=== PATIENT | male | born 1980 | race American Indian/Alaskan Native ===

== ENCOUNTER 2017-08-10 09:52 | Emergency (ER) | payer OTHER ==
[2017-08-10 09:55] VITALS: BP 128/94
[2017-08-10] MEDS ORDERED: DECADRON IV ONE (10:41)
[2017-08-10] MEDS ORDERED: PEPCID PO ONE (10:41)
[2017-08-10] MEDS ORDERED: DECADRON IM ONE (10:53)
--- NOTE | 2017-08-10 10:57 | Emergency Department Report ---
HPI - General Chief Complaint: Allergic Reaction - HPI HPI: 36-year-old -[place] male comes in for complaint of hives all over his body that started approximately Saturday. Patient reports that today he woke up with swelling to his face. Patient denies any shortness of breathing he denies any wheezing he does report he is taken Benadryl but last dose was last night. He currently has no past medical history he is currently on no other meds and has no known drug allergies. The only thing he can think of is that he had some hot chips that were new other than that he has no recollection of what it could be caused from. ED Past Medical Hx - Past Medical History Previous Medical History?: No - Surgical History Past Surgical History?: No - Social History Smoking Status: Never Smoker Substance Use Type: None - Medications Home Medications: Home Medications Medication Instructions Recorded Confirmed Last Taken Type Cetirizine HCl [ZyrTEC] 10 mg PO QDAY 30 Days #30 capsule 08/10/17 Unknown Rx Famotidine [Pepcid] 20 mg PO QDAY #15 tablet 08/10/17 Unknown Rx methylPREDNISolone [Medrol] 4 mg PO QDAY #1 tab.ds.pk 08/10/17 Unknown Rx ED Review of Systems ROS: Stated complaint: ALLERGIC REACTION Other details as noted in HPI Constitutional: denies: chills, fever Eyes: denies: eye pain, eye discharge, vision change ENT: denies: ear pain, throat pain Respiratory: denies: cough, shortness of breath, wheezing Cardiovascular: denies: chest pain, palpitations Endocrine: no symptoms reported Gastrointestinal: denies: abdominal pain, nausea, diarrhea Genitourinary: denies: urgency, dysuria Musculoskeletal: denies: back pain, joint swelling, arthralgia Skin: rash, pruritus Psychiatric: denies: anxiety, depression Hematological/Lymphatic: denies: easy bleeding, easy bruising Physical Exam - Physical Exam Vital Signs: Vital Signs 08/10/17 09:54 Temperature 98.1 F Pulse Rate 81 Respiratory 18 Rate Blood Pressure 128/94 [Left] O2 Sat by Pulse 100 Oximetry Physical Exam: GENERAL: Alert and oriented x3, no apparent distress, Normal Gait, atraumatic. HEAD: Head is normocephalic and a-traumatic. MOUTH:Mouth is well hydrated and without lesions. Tonsils Nonerythematous or swollen, Uvula midline, Tongue not elevated. Mucous membranes are moist. Posterior pharynx clear, no exudate or lesions. Patent airways. NECK: Supple. Non edematous, No carotid bruits. No lymphadenopathy or thyromegaly. LUNGS: Symetrical with respiration, No wheezing, no rales or crackles, CTAB. Airway is patent no obstruction HEART: S1, S2 present, regular rate and rhythm without murmur, no rubs, no gallops. ABDOMEN: No organomegaly was noted,Positive bowel sounds, soft, and non- distended. . Nontender to palpation on all Quadrants, NO CVA tenderness. Urticaria patches NEUROLOGIC: No focal Deficit, Cranial nerves II through XII are grossly intact. No loss of sensation, No facial droop, Negative rhomberg. PSYCHIATRIC: Mood is congruent with affect, denies suicidal or homicidal ideations. SKIN: Warm and dry, No lesions, No ulceration or induration present ED Course Vital Signs 08/10/17 09:54 Temperature 98.1 F Pulse Rate 81 Respiratory 18 Rate Blood Pressure 128/94 [Left] O2 Sat by Pulse 100 Oximetry ED Medical Decision Making - Medical Decision Making Patient has been evaluated by this provider in fast track. I discussed with patient that this is most likely a allergic reaction. Discussed with patient that we'll give him Pepcid and dexamethasone 8 mg. Discussed patient I would like to give him Benadryl but since he does not have a ride that we did not feel comfortable in sending him home with a Benadryl injection unless she is able to have someone come to drive him home. Patient reports that he prefers to take the Benadryl when he gets home. Reassured patient that his airway is patent and I do not hear any wheezing. That his eyes are not swollen shut he has no short of breath. Discussed the patient to do follow-up at [facility] discussed with patient to continue with the Benadryl 25 mg every 4-6 hours as needed. Patient verbalizes understanding Critical care attestation.: If time is entered above; I have spent that time in minutes in the direct care of this critically ill patient, excluding procedure time. ED Disposition Clinical Impression: Allergic reaction Qualifiers: Encounter type: initial encounter Qualified Code(s): T78.40XA - Allergy, unspecified, initial encounter Disposition: DC-01 TO HOME OR SELFCARE Is pt being admited?: No Does the pt Need Aspirin: No Condition: Stable Instructions: Cetirizine (By mouth) Additional Instructions: Take medication as prescribed. Follow up with the primary care provider if symptoms does not improve. Stay away from the chips that she had eaten is most likely that you are allergic to them. Prescriptions: Cetirizine HCl [ZyrTEC] 10 mg PO QDAY 30 Days #30 capsule Famotidine [Pepcid] 20 mg PO QDAY #15 tablet methylPREDNISolone [Medrol] 4 mg PO QDAY #1 tab.ds.pk Referrals: PRIMARY CARE, [Primary Care Provider] - 3-5 Days Forms: Work/School Release Form(ED)
== END 2017-08-10 11:32 | disposition home or self-care (01) ==
LOC: ED 09:52
DX: T78.40XA Allergy, unspecified, initial encounter (principal); X58.XXXA Exposure to other specified factors, initial encounter; Y93.89 Activity, other specified; Y99.8 Other external cause status; Y92.89 Other specified places as the place of occurrence of the external cause
CPT/HCPCS: 96372; 99282; J1100

== ENCOUNTER 2017-08-15 09:30 | Emergency (ER) | payer OTHER ==
[2017-08-15] MEDS ORDERED: BENADRYL IM ONE (16:19)
[2017-08-15] MEDS ORDERED: DECADRON IM ONE (16:20)
[2017-08-15] MEDS ORDERED: PEPCID PO ONE (16:20)
--- NOTE | 2017-08-15 16:21 | Emergency Department Report ---
ED Rash HPI - HPI Chief Complaint: Skin Rash Stated Complaint: POISON ADOLFO Time Seen by Provider: 08/15/17 15:24 Duration: 3 Days Location: Head, Neck, Chest, Back, Abdomen, Upper Extremities Suspected Cause: Plant Rash Symptoms: Yes Itching, No Facial Swelling, No Tongue/Oral Swelling, No Breathing Difficulties, No Choking Sensation, No Wheezing/Dyspnea, No Peeling, No Blistering, No Fever, No Lightheaded, No Malaise, No Myalgias Severity: mild Other History: 36-year-old male past medical history none presents with complaint of itchy skin and hives. Patient states that a few days ago he was clearing bushes in his backyard and may have made contact with poison adolfo. Patient states he was treated with Zyrtec but has not had significant improvement of his symptoms. Patient denies any shortness of breath or facial swelling. Visible urticaria on face, extremities and upper chest. Denies use of new cosmetics any new medicines other than what he was prescribed, no new pets no recent travel and no food allergies. ED Review of Systems ROS: Stated complaint: POISON ADOLFO Other details as noted in HPI Constitutional: denies: chills, fever Eyes: denies: eye pain, eye discharge, vision change ENT: denies: ear pain, throat pain Respiratory: denies: cough, shortness of breath, wheezing Cardiovascular: denies: chest pain, palpitations Endocrine: no symptoms reported Gastrointestinal: denies: abdominal pain, nausea, diarrhea Genitourinary: denies: urgency, dysuria Musculoskeletal: denies: back pain, joint swelling, arthralgia Skin: as per HPI, pruritus. denies: rash, lesions Neurological: denies: headache, weakness, paresthesias Psychiatric: denies: anxiety, depression Hematological/Lymphatic: denies: easy bleeding, easy bruising ED Past Medical Hx - Past Medical History Previous Medical History?: No - Surgical History Past Surgical History?: No - Social History Smoking Status: Current Every Day Smoker Substance Use Type: None - Medications Home Medications: Home Medications Medication Instructions Recorded Confirmed Last Taken Type Cetirizine HCl [ZyrTEC] 10 mg PO QDAY 30 Days #30 capsule 08/10/17 Unknown Rx Famotidine [Pepcid] 20 mg PO QDAY #15 tablet 08/10/17 Unknown Rx methylPREDNISolone [Medrol] 4 mg PO QDAY #1 tab.ds.pk 08/10/17 Unknown Rx Calamine/Zinc Oxide [Calamine 1 applicatio TP Q8H PRN #1 lotion 08/15/17 Unknown Rx Lotion] Famotidine [Pepcid] 20 mg PO BID PRN #30 tablet 08/15/17 Unknown Rx Hydrocortisone 1% [Hydrocortisone 1 applicatio TP TID PRN #1 tube 08/15/17 Unknown Rx 1% CREAM] Hydroxyzine HCl 25 mg PO Q8H PRN #30 tablet 08/15/17 Unknown Rx predniSONE [Deltasone] 40 mg PO QDAY #10 tab 08/15/17 Unknown Rx Rash Exam - Exam General: Vital signs noted. No distress. Alert and acting appropriately. HEENT: No Periorbital Edema, No Conjuctival Injection, No Chemosis, No Perioral Edema, No Tongue Edema, No Uvular Edema, No Compromised Airway, No Drooling Lungs: Yes Good Air Exchange (Normal Breath Sounds), No Wheezes, No Ronchi, No Stridor, No Cough, No Labored Respirations, No Retractions, No Use of Accessory Muscles, No Other Abnormal Lung Sounds Heart: Yes Regular, No Murmur Skin: Yes Maculopapular Rash (hives on upper extremities chest back thighs and some on the face), No Urticarial Rash, No Morbilliform rash, No Bulla(e), No Excoriations, No Weeping, No Tenderness, No Erythema, No Edema, No Encrustations Other: Positive: Abdomen Normal, Neurologic Normal, Musculoskeletal Normal ED Course Vital Signs 08/15/17 09:56 Temperature 98.2 F Pulse Rate 76 Respiratory 17 Rate Blood Pressure 145/105 O2 Sat by Pulse 100 Oximetry ED Medical Decision Making - Medical Decision Making A/P: Contact dermatitis, hives 1-no clinical signs of angioedema on exam..likely secondary to exposure to patches which possibly contain poison iny as patient was clearing his backyard 2-calamine lotion topical when necessary, hydrocortisone when necessary, short course prednisone, short course of hydroxyzine, Pepcid when necessary 3-patient already taking Zyrtec 4- follow up with primary care dermatology and financial manager. Critical care attestation.: If time is entered above; I have spent that time in minutes in the direct care of this critically ill patient, excluding procedure time. ED Disposition Clinical Impression: Itchy skin, Plant allergic contact dermatitis Contact dermatitis Qualifiers: Contact dermatitis type: allergic Contact dermatitis trigger: other trigger Qualified Code(s): L23.89 - Allergic contact dermatitis due to other agents; L23.8 - Allergic contact dermatitis due to other agents Disposition: DC-01 TO HOME OR SELFCARE Is pt being admited?: No Does the pt Need Aspirin: No Condition: Stable Instructions: Contact Dermatitis (ED), Poison Adolfo (ED), Itchy Skin (ED), Acute Rash (ED) Prescriptions: Calamine/Zinc Oxide [Calamine Lotion] 1 applicatio TP Q8H PRN #1 lotion PRN Reason: Itching Famotidine [Pepcid] 20 mg PO BID PRN #30 tablet PRN Reason: Allergic Reaction Hydrocortisone 1% [Hydrocortisone 1% CREAM] 1 applicatio TP TID PRN #1 tube PRN Reason: Itching Hydroxyzine HCl 25 mg PO Q8H PRN #30 tablet PRN Reason: Itching predniSONE [Deltasone] 40 mg PO QDAY #10 tab Referrals: [facility] [Provider Group] - 3-5 Days [facility] [Provider Group] - 3-5 Days [facility] [Outside] - 3-5 Days [facility] [Outside] - 3-5 Days Forms: Work/School Release Form(ED) Time of Disposition: 17:14
[2017-08-15 17:31] VITALS: BP 140/100
== END 2017-08-15 17:30 | disposition home or self-care (01) ==
LOC: ED 09:30
DX: L23.9 Allergic contact dermatitis, unspecified cause (principal); F17.200 Nicotine dependence, unspecified, uncomplicated
CPT/HCPCS: 96372; 99282; J1100; J1200